=== PATIENT | male | born 1995 | race Caucasian/White ===

== ENCOUNTER → 2018-12-13 13:43 | Outpatient (CLI) | payer BC, SELFPAY ==
[2018-12-13 14:07] LABS: Basophils # 0.1 K/mm3 (0-0.2); Basophils % 0.9 % (0.1-2.0); Eosinophils # 0.3 K/mm3 (0.0-0.4); Eosinophils % 3.7 % (0.1-12.0); Hematocrit 46.3 % (42.0-52.0); Hemoglobin 15.6 g/dL (14.1-18.0); Lymphocytes # 2.4 K/mm3 (0.7-4.5); Lymphocytes % 33.7 % (10-50); Mean Corpuscular HGB Conc 33.7 g/dL (31.8-35.4); Mean Corpuscular Hemoglobin 30.6 pg (27.0-31.2); Mean Corpuscular Volume 90.8 fl (80-94); Monocytes # 0.4 K/mm3 (0.1-1.0); Monocytes % 5.6 % (1.7-9.3); Neutrophils # 3.9 K/mm3 (1.8-7.8); Neutrophils % 56.1 % (37.0-80.0); Platelet Count 453 K/mm3 (142-424); Red Cell Distribution Width 12.5 % (11.5-17.5)
[2018-12-13 14:16] LABS: C-Reactive Protein < 0.2 mg/L (0.0-0.9)
[2018-12-13 15:09] LABS: Erythrocyte Sedimentation Rate 0 mm/hr (0-15)
== END ==
PROVIDERS: Visit Provider Emergency Medicine
DX: K92.1 Melena (principal)
CPT/HCPCS: 85025; 85651; 86140